=== PATIENT | female | born 1985 ===

== ENCOUNTER 2018-06-22 19:21 | Emergency (ER) | payer SELFPAY ==
[2018-06-22 19:21] VITALS: BMI 27.8
[2018-06-22 19:26] VITALS: RESP 16; TEMP 98.1; O2SAT 100
--- NOTE | 2018-06-22 20:20 | ED PDOC ---
HPI: SOB/CHF/COPD Time Seen by Provider: 06/22/18 19:34 Chief Complaint (Nursing): Headache Chief Complaint (Provider): Weakness and Dizziness History Per: Patient History/Exam Limitations: no limitations Onset/Duration Of Symptoms: Mins (just prior to arrival) Current Symptoms Are (Timing): Better Associated Symptoms: Dizziness, Other Additional Complaint(s): 32 year old female with no significant medical history presents to the ED via EMS for evaluation of palpitations, dizziness, weakness and shortness of breath. Patient reports just prior to arrival to the ED she was returning home from the store when the symptoms suddenly began. She states that on arrival to the ED she feels better. Patient denies a history of similar symptoms as well as any stress recently. PMD: none provided Past Medical History Reviewed: Historical Data, Nursing Documentation, Vital Signs Vital Signs: Last Vital Signs Temp 98.1 F 06/22/18 19:26 Pulse 100 H 06/22/18 19:26 Resp 16 06/22/18 19:26 BP 129/73 06/22/18 19:26 Pulse Ox 100 06/22/18 19:26 - Medical History PMH: No Chronic Diseases - Surgical History Surgical History: No Surg Hx - Family History Family History: States: Unknown Family Hx - Social History Current smoker - smoking cessation education provided: No Alcohol: None Drugs: Denies - Immunization History Hx Tetanus Toxoid Vaccination: No Hx Influenza Vaccination: No Hx Pneumococcal Vaccination: No - Home Medications Home Medications: Ambulatory Orders Medication Instructions Recorded Loratadine [Claritin] 10 mg PO DAILY #30 tab 02/05/17 Ofloxacin Ophth 0.3% [Ocuflox 1 drop OU QID #1 bottle 02/05/17 Ophth 0.3%] Polymyxin B Sulf/Trimethoprim 10 ml OP QID 02/05/17 [Polymyxin B/Trimethoprim Sulfate 00322 U/ml-1] Nitrofurantoin Macrocrystals 100 mg PO BID 5 Days cap 06/22/18 [Macrobid] - Allergies Allergies/Adverse Reactions: Allergies Allergy/AdvReac Type Severity Reaction Status Date / Time No Known Allergies Allergy Verified 06/22/18 19:29 Wells Criteria for PE - Wells Criteria for Pulmonary Embolism Clinical Signs and Symptoms of DVT: No P.E is #1 Diagnosis, or Equally Likely: No Heart Rate >100: No Immobilization at least 3 days;Surgery previous 4 weeks: No Previous, objectively diagnosed PE or DVT: No Hemoptysis: No Malignancy w/treatment within 6 months, or palliative: No Total Score: 0 Review of Systems ROS Statement: Except As Marked, All Systems Reviewed And Found Negative Constitutional: Positive for: Weakness Cardiovascular: Positive for: Palpitations Respiratory: Positive for: Shortness of Breath Neurological: Positive for: Dizziness Physical Exam - Reviewed Nursing Documentation Reviewed: Yes Vital Signs Reviewed: Yes - Physical Exam Appears: Positive for: No Acute Distress Head Exam: Positive for: ATRAUMATIC, NORMAL INSPECTION, NORMOCEPHALIC Skin: Positive for: Normal Color, Warm, Dry Eye Exam: Positive for: EOMI, Normal appearance, PERRL Neck: Positive for: Normal, Painless ROM, Supple Cardiovascular/Chest: Positive for: Regular Rate, Rhythm. Negative for: Murmur Respiratory: Positive for: Normal Breath Sounds. Negative for: Wheezing, Respiratory Distress Gastrointestinal/Abdominal: Positive for: Normal Exam, Soft. Negative for: Tenderness Extremity: Positive for: Normal ROM (upper and lower extremities). Negative for: Deformity, Swelling Neurologic/Psych: Positive for: Alert, Oriented. Negative for: Motor/Sensory Deficits - ECG ECG: Positive for: Interpreted By Me, Viewed By Me ECG Rhythm: Positive for: Sinus Rhythm (normal). Negative for: ST/T Changes (or arrhythmia) Rate: 94 O2 Sat by Pulse Oximetry: 100 (RA) Pulse Ox Interpretation: Normal Medical Decision Making Medical Decision Makin:51 MDM: Vitals are stable, accucheck is normal Labs reveal small UTI Will treat patient for UTI and refer to clinic Patient is PERC negative. Orders: --Urine preg --Urine dip --Accucheck --EKG 20:18 Patient is very well appearing upon discharge. test is negative. All questions are answered. Follow up with PMD. -- Scribe Attestation: Documented by Madeline Franklin acting as a scribe for Michael Swanson MD Provider Scribe Attestation: All medical record entries made by the Scribe were at my direction and personally dictated by me. I have reviewed the chart and agree that the record accurately reflects my personal performance of the history, physical exam, medical decision making, and the department course for this patient. I have also personally directed, reviewed, and agree with the discharge instructions and disposition. Disposition - Clinical Impression Clinical Impression: Anxiety, UTI (urinary tract infection) - Patient ED Disposition Is Patient to be Admitted: No - Disposition Disposition: Routine/Home Disposition Time: 20:18 Condition: GOOD Prescriptions: Nitrofurantoin Macrocrystals [Macrobid] 100 mg PO BID 5 Days cap Instructions: Urinary Tract Infection, Adult (DC), Anxiety, Adult (DC) Forms: [facility] (Swedish) Print Language: MOHAWK
[2018-06-22 20:30] VITALS: PULSE 94
[2018-06-22 20:47] VITALS: BP 102/62
--- NOTE | 2018-06-23 06:41 | CARD ---
APPROVED REPORT Date of service: 06/22/2018 EKG Measurement Heart [id number] <Conclusion> Normal sinus rhythm Normal ECG
== END 2018-06-22 20:35 | disposition home or self-care (01) ==
LOC: H.ER 19:21
DX: N39.0 Urinary tract infection, site not specified (principal); F41.9 Anxiety disorder, unspecified